=== PATIENT | female | born 1995 | race Caucasian/White ===

== ENCOUNTER 2020-05-28 16:55 | Emergency (ER) | payer OTHER ==
[2020-05-28 17:18] VITALS: TEMP 97.6; BMI 38.6
[2020-05-28] MEDS ORDERED: ACETAMINOPHEN 1000 MG/100 ML VIAL (NON FORMULARY) IVPB ONE (17:56)
[2020-05-28] MEDS ORDERED: SODIUM CHLORIDE 1,000 ML IV STA (17:56)
--- NOTE | 2020-05-28 18:03 | PDOC ---
History of Present Illness - General Chief Complaint: Pain Stated Complaint: ABD PAIN Time Seen by Provider: 05/28/20 17:48 History Source: Patient Exam Limitations: No Limitations - History of Present Illness Travel History: No Initial Comments: 05/28/20 17:59 HISTORY OF PRESENT ILLNESS: 25-year-old woman denies medical history presents emergency department for evaluation of atraumatic left upper quadrant pain starting upon awakening today. Patient reports her pain is 8/10 is unable to describe the quality of the pain other than "it hurts really bad." Patient is unable to identify any aggravating or alleviating factors. She denies any nausea, vomiting, fevers, chills, dysuria, hematuria, rectal bleeding, constipation or diarrhea. No recent travel or sick contacts. PAST MEDICAL HISTORY: Denies past medical history SURGICAL HISTORY: Denies ALLERGIES: No known drug allergies REVIEW OF SYSTEMS General/Constitutional: Denies fever or chills. Denies weakness, weight change. HEENT: Denies change in vision. Denies ear pain or discharge. Denies sore throat. Cardiovascular: Denies chest pain or shortness of breath. Respiratory: Denies cough, wheezing, or hemoptysis. Gastrointestinal: See HPI Genitourinary: Denies dysuria, frequency, or change in urination. Musculoskeletal: Denies joint or muscle swelling or pain. Denies neck or back pa in. Skin and breasts: Denies rash or easy bruising. Neurologic: Denies headache, vertigo, loss of consciousness, or loss of sensation. Psychiatric: Denies depression or anxiety. Endocrine: Denies increased thirst. Denies abnormal weight change. Hematologic/Lymphatic: Denies anemia, easy bleeding, or history of blood clots. Allergic/Immunologic: Denies hives or skin allergy. Denies latex allergy. PHYSICAL EXAM General Appearance: Well-appearing, appropriately dressed. No apparent distress, no intoxication. Respiratory/Chest: Lungs CTAB. No shortness of breath, chest tenderness, respiratory distress, accessory muscle use. No crackles, rales, rhonchi, stridor, wheezing, dullness Cardiovascular: RRR. S1, S2. No JVD, murmur, bradycardia, tachycardia. Gastrointestinal/Abdominal: Normal bowel sounds. Abdomen soft, non-distended. Left upper quadrant tenderness with guarding present. No organomegaly, pulsatile mass, hernia, hepatomegaly, splenomegaly. Musculoskeletal/Extremities: Normal inspection. FROM of all extremities, normal capillary refill. No CVA tenderness. Past History - Medical History Allergies/Adverse Reactions: Allergies Allergy/AdvReac Type Severity Reaction Status Date / Time No Known Allergies Allergy Verified 05/28/20 17:18 COPD: No - Reproductive History Is Patient Now?: No - Psycho-Social/Smoking History Smoking History: Former smoker Have you smoked in the past 12 months: Yes If you are a former smoker, when did you quit?: 4MONTHS AGO Information on smoking cessation initiated: No - Substance Abuse Hx (Audit-C & DAST Scrn) How often the patient has a drink containing alcohol: Never Score: In Men: 4 or > Positive; In Women: 3 or > Positive: 0 Screen Result (Pos requires Nsg. Audit-10AR): Negative In the last yr the pt used illegal drug/Rx for NonMed reason: No Score: Yes response is considered Positive: 0 Screen Result (Positive result requires Nsg. DAST-10): Negative *Physical Exam - Vital Signs Last Vital Signs Temp Pulse Resp BP Pulse Ox 97.6 F 95 H 18 134/88 98 05/28/20 17:13 05/28/20 17:13 05/28/20 17:13 05/28/20 17:13 05/28/20 17:13 ED Treatment Course - LABORATORY CBC & Chemistry Diagram: 05/28/20 18:00 05/28/20 18:00 - RADIOLOGY Radiology Studies Ordered: Category Date Time Status ABDOMEN & PELVIS CT WITH CONTR [CT] Stat CT Scan 05/28/20 17:58 Ordered Medical Decision Making - Medical Decision Making 05/28/20 18:02 A/P: 25-year-old woman with atraumatic left upper quadrant pain since awakening today Right upper quadrant tenderness with guarding present Differential diagnosis includes but is not limited to-gastritis, hiatal hernia, obstruction, perforation, infection, metastatic disease, pancreatitis, splenic artery occlusion, splenic infarct. Labs including lipase Normal saline 1 L IV bolus Tylenol [address] abdomen and pelvis with IV contrast Reassess 05/28/20 21:09 05/28/20 21:57 Laboratory Tests 05/28/20 05/28/20 05/28/20 18:00 18:00 19:30 WBC 7.1 RBC 4.64 Hgb 12.9 Hct 39.1 MCV 84.4 MCH 27.9 MCHC 33.0 RDW 15.3 Plt Count 407 MPV 7.9 Absolute Neuts (auto) 4.5 Neutrophils % 63.4 Lymphocytes % 26.2 Monocytes % 8.8 Eosinophils % 0.9 Basophils % 0.7 Nucleated RBC % 0 Sodium 139 Potassium 4.2 Chloride 107 Carbon Dioxide 24 Anion Gap 7 L BUN 10.1 Creatinine 0.8 Est GFR (CKD-EPI)AfAm 120.44 Est GFR (CKD-EPI)NonAf 103.92 Random Glucose 103 Calcium 9.0 Total Bilirubin 0.4 AST 22 ALT 40 Alkaline Phosphatase 68 Total Protein 7.3 Albumin 3.7 Lipase 130 Urine Color Yellow Urine Appearance Cloudy Urine pH 7.5 D Ur Specific [place] 1.025 Urine Protein Negative Urine Glucose (UA) Negative Urine Ketones Negative Urine Blood Negative Urine Nitrite Negative Urine Bilirubin Negative Urine Urobilinogen 1.0 Ur Leukocyte Esterase Negative Urine HCG, Qual Negative CT of the abdomen pelvis is read by Dr. Lenz: No definite CT findings of acute pathology are noted. A 4 x 3.9 cm right adnexal cyst is seen. Correlation with 6-week follow-up son ography is suggested to document resolution. Moderate to large central/right paramedian L5-S1 disc herniation is noted. His laboratory testing is unremarkable CT findings are unremarkable patient is tolerating p.o.'s, I feel it is safe to discharge home to follow-up with her primary doctor. A referral for gastroenterology has been provided. I discussed the physical exam findings, ancillary test results and final diagnoses with the patient. I answered all of the patient's questions. The patient was satisfied with the care received and felt comfortable with the discharge plan and treatment plan. The patient will call their primary care physician within 24 hours to arrange follow-up and will return to the Emergency Department with any new, persistent or worsening symptoms. Portions of this note have been documented using voice recognition software. As a result, errors may occur in the explosive ordnance manager process. Effort has been made to correct all grammatical and explosive ordnance manager error, but some may have been missed which may produce sporadic inaccurate explosive ordnance manager or nonsensical phrases. Discharge - Discharge Information Problems reviewed: Yes Clinical Impression/Diagnosis: Abdominal pain Qualifiers: Abdominal location: left upper quadrant Qualified Code(s): R10.12 - Left upper quadrant pain Condition: Fair Disposition: HOME - Admission No - Follow up/Referral Referrals: Melani Samson MD [Staff Physician] - - Patient Discharge Instructions Additional Instructions: Rest, drink lots of fluids: Teas, water, soups Tyra taurus, carbonated beverages for the bubbles May try peppermint teas Avoid heavy , spicy or fatty foods until symptoms have resolved Avoid contact with others until fevers and symptoms resolved Lots of handwashing and good hygiene Continue [id number] medications for symptomatic relief Tylenol for fever and pain Followup with private physician in one to 2 days as needed Return to emergency department for worsened symptoms, fevers, dehydration - Post Discharge Activity Work/Back to School Note: Back to Work
[2020-05-28] MEDS ORDERED: ACETAMINOPHEN INJECTION 100 ML IVPB ONE (18:19)
[2020-05-28 18:45] LABS: BASO % 0.7 % (0-2.0); EOS % 0.9 % (0-4.5); HEMATOCRIT 39.1 % (32.4-45.2); HEMOGLOBIN 12.9 GM/dL (10.7-15.3); LYMPH % 26.2 % (8-40); MCH 27.9 pg (25.7-33.7); MEAN CELL VOLUME 84.4 fl (80-96); MEAN PLT VOLUME 7.9 fl (7.5-11.1); MONO % 8.8 % (3.8-10.2); NEUT % 63.4 % (42.8-82.8); PLATELET COUNT 407 K/MM3 (134-434); RBC 4.64 M/mm3 (3.60-5.2); RDW 15.3 % (11.6-15.6); WHITE BLOOD COUNT 7.1 K/mm3 (4.0-10.0)
[2020-05-28 19:13] LABS: ALBUMIN 3.7 g/dl (3.4-5.0); BILIRUBIN,TOTAL 0.4 mg/dL (0.2-1); BLOOD UREA NITROGEN 10.1 mg/dL (7-18); CREATININE 0.8 mg/dL (0.55-1.3); POTASSIUM 4.2 mmol/L (3.5-5.1); TOT PROT 7.3 g/dl (6.4-8.2)
[2020-05-28 20:07] LABS: PH,URINE 7.5 (5.0-8.0); URINE APPEARANCE CLOUDY; URINE BILIRUBIN NEGATIVE (NEGATIVE); URINE COLOR YELLOW; URINE GLUCOSE (UA) NEGATIVE (NEGATIVE); URINE KETONE NEGATIVE (NEGATIVE); URINE LEUK ESTERASE NEGATIVE (NEGATIVE); URINE NITRITE NEGATIVE (NEGATIVE); URINE PROTEIN NEGATIVE (NEGATIVE)
[2020-05-28 20:27] LABS: HCG,QUALITATIVE URINE Negative
[2020-05-28 22:06] VITALS: BP 127/84; PULSE 89
--- OUTSIDE RECORDS SUMMARY | 2020-05-29 09:16 | XMS ---
:1995 Author Organization [facility] Support Name Relationship Address Phone UE Unavailable Unavailable Unavailable [employer] [place] [address] P, Michelle Unavailable [address] [facility] [place] [address] Re-disclosure Warning The records that you are about to access may contain information from federally- assisted alcohol or drug abuse programs. If such information is present, then the following federally mandated warning applies: This information has been disclosed to you from records protected by federal confidentiality rules (42 CFR part 2). The federal rules prohibit you from making any further disclosure of this information unless further disclosure is expressly permitted by the written consent of the person to whom it pertains or as otherwise permitted by 42 CFR part 2. A general authorization for the release of medical or other information is NOT sufficient for this purpose. The Federal rules restrict any use of the information to criminally investigate or prosecute any alcohol or drug abuse patient.The records that you are about to access may contain highly sensitive health information, the redisclosure of which is protected by Article 27-F of the [facility] Public Health law. If you continue you may haveaccess to information: Regarding HIV / AIDS; Provided by facilities licensed or operated by the [facility] Office of Mental Health; or Provided by the [facility] Office for People With Developmental Disabilities. If such information is present, then the following [facility] mandated warning applies: This information has been disclosed to you from confidential records which are protected by state law. State law prohibits you from making any further disclosure of this information without the specific written consent of the person to whom it pertains, or as otherwise permitted by law. Any unauthorized further disclosure in violation of state law may result in a fine or alf sentence or both. A general authorization for the release of medical or other information is NOT sufficient authorization for further disclosure. Allergies and Adverse Reactions Type Description Substance Reaction Status Data Source(s ) No Known No Known Allergies No Known eCW2 ( [facility] [facility]) Encounters Encounter Providers Location Date Indications Data Source(s ) [facility] [place] [facility] 12:[facility] - Ant EDT [facility] [facility]) Outpatient 12/07/2018 [facility] 07:54:00 AM ([facility] 05/09/2018 [facility] ( [facility] 12:00:00 AM Pa[facility] - Ant EDT [facility] [facility]) [facility] 05/02/2018 [facility] ( [facility] 12:00:00 AM Paren th[facility] - Ant EDT [facility]) [facility] 09/09/2017 eCW2 ( [facility] 12:00:00 AM Paren th[facility] - Ant EST [facility]) [facility] 02/02/2017 eCW2 ( [facility] [place] 12:00:00 AM Paren[facility] o[facility] - Ant EDT [facility]) [facility] 12/16/2016 eCW2 ( [facility] 12[facility]00:00 AM [facility] - Ant EDT [facility]) [facility] 12/30/2015 eCW[facility] ( [facility] 12:00:00 AM Paren th[facility] - Ant EDT [facility]) [facility] 06/30/2015 e[facility] ( [facility] 12:00:00 AM Paren th[facility] - Ant EDT [facility]) [facility] 03/19/2015 eCW[facility] ( [facility] 12:00:00 AM Paren th[facility] - Ant EDT [facility]) [facility] 09/19/2014 eCW2 ( [facility] 12:00:00 AM Paren th[facility] - Ant EST [facility]) [facility] 06/09/2014 eCW2 ( [facility] 12:00:00 AM Paren th[facility] - Ant EDT [facility]) [facility] 06/05/2014 eCW[facility] ( [facility] 12:00:00 AM Paren [facility] - Ant EDT [facility]) Immunizations Vaccine Date Status Description Data Source(s) No Known Immunizations completed eCW2 ([facility] [place] [facility]) Medications Medication Brand Start Product Dose Route Administrative Pharm[facility] Indications Reaction Description Data Name Date Form Instructions Instructions Source(s) 168 HR Xulane 05/02/ suspend 1 patch to eCW2 Ethinyl 150-35 2017 ed skin (Planned Estradiol MCG/24 12:00: Parent harris 0.34414 HR 00 AM - [facility] MG/HR / EDT [place] [employer] at min 0.34448 ed) MG/HR Transdermal Patch [Xulane] Xulane 150-35 MCG/24HR 168 HR Xulane 09/09/ suspend 1 patch to eCW2 Ethinyl 150-35 2016 ed skin ([facility] Estradiol MCG/24 12:00: Parent harris 0.35864 HR 00 AM - [facility] MG/HR / EST [place] [employer] at min 0.72750 ed) MG/HR Transdermal Patch [Xulane] Xulane 150-35 MCG/24HR Estradiol 1 Estrac 02/02/ suspend 1 tabl et eCW2 MG Oral e 1 MG 2016 ed (Planned Tablet 12:00: [facility] [Estrace] 00 AM - [facility] Estrace 1 EDT [place] MG [employer] ed) Fluconazole Difluc 12/29/ suspend 1 tabl et eCW2 150 MG Oral an 2015 ed (Planned Tablet 150MG 12:00: Parenthood [Diflucan] 00 AM - [facility] Diflucan EDT [place] 150MG [employer] ed) Etonogestre Nexpla suspend as direc sunita eCW2 l 68 MG non 68 ed ([facility]anned Drug [facility] [Nexplanon] [place] Nexplanon [employer] 68 MG ed) Naproxen UNK active eCW2 ([facility] [place] [facility] ed) Insurance Providers Payer name Policy type Policy ID Covered Covered green party's Policy P aaron / Coverage green party ID relationship to [place] Inf ormation type castano [facility] MEDICAID [id number] [facility] [id number] Problems, Conditions, and Diagnoses Code Display Name Description Problem Type Effective Dates Data Source(s) Z11.3 Venereal disease Routine screening Problem 07/07/2015 e CW2 ([facility]anned screening for STI (sexually 12:00:00 AM EDT [facility] - transmitted [facility] [place] [facility] infection) [facility]) Surgeries/Procedures Procedure Description Date Indications Data Source(s) CHLAMYDIA, SARAH 03/11/2020 eCW2 ([facility] 12:00:00 AM EDT [facility] [facility]) Telehealth Visit Code 03/11/2020 eCW2 ( [facility] 12:00:00 AM EDT [facility] [place] [facility] rated) GONORRHEA, SARAH 03/11/2020 eCW2 ([facility] 12:00:00 AM EDT [facility] [place] [facility] rated) SPECIMEN HANDLING 03/11/2020 eCW2 (Plan feroz 12:00:00 AM EDT [facility] [place] [facility] rated) HIV-1 AG W/HIV-1 & 03/11/2020 eCW2 ([place] nned HIV-2 AB 12:00:00 AM EDT [facility] [place] [facility] rated) SYPHILIS TEST 03/11/2020 eCW2 ([facility] 12:00:00 AM EDT [facility] [place] [facility] rated) HEP A ANTIBODY 03/11/2020 eCW2 ([facility] 12:00:00 AM EDT [facility] [place] [facility] rated) HEP B CORE ANTIBODY 03/11/2020 eCW2 (Pl anned TOTAL 12:00:00 AM EDT [facility] [place] [facility] rated) HEP B SURFACE AB 03/11/2020 eCW2 (Plann ed 12:00:00 AM EDT [facility] [place] [facility] rated) HEP B SURFACE ANTIGEN 03/11/2020 eCW2 ( Planned HBsAg 12:00:00 AM EDT [facility] [place] [facility] rated) HEP C ANTIBODY 03/11/2020 eCW2 ([facility] 12:00:00 AM EDT [facility] [place] [facility]) Social History Code Duration Value Status Description Data Source(s ) Smoking Unknown if ever completed Unknown if ever eCW2 ([facility] smoked smoked [facility]) Vital Signs ID Date Data Source UNK Name Value Range Interpretation Code Description Data Source(s) Body mass index 35.51 kg/m2 35.51 kg/m2 eCW2 (P lanned (BMI) [Ratio] [facility]) Body weight 220 [lb_av] 220 [lb_av] eCW2 (Plann ed Measured [facility]) Body height 66 [in_us] 66 [in_us] eCW2 ([facility])
== END 2020-05-28 22:06 | disposition home or self-care (01) ==
LOC: JERFT 16:55
PROC: 3E0333Z Introduction of Anti-inflammatory into Peripheral Vein, Percutaneous Approach (ICD-10-PCS; principal; 2020-05-28)
PROC: 3E0337Z Introduction of Electrolytic and Water Balance Substance into Peripheral Vein, Percutaneous Approach (ICD-10-PCS; 2020-05-28)
DX: R10.12 Left upper quadrant pain (principal)
CPT/HCPCS: 36415; 74177-TC; 80053; 81003; 83690; 84703; 85025; 99285-25; J0131

== ENCOUNTER 2021-09-22 14:10 | Emergency (ER) | payer OTHER ==
[2021-09-22 15:35] VITALS: BP 119/76; PULSE 132; TEMP 99.1; BMI 38.2
[2021-09-22] MEDS ORDERED: ACETAMINOPHEN 500 MG TABLET (FP) PO ONE (17:15)
[2021-09-22] MEDS ORDERED: KETOROLAC TROMETHAMINE 30 MG/1 ML VIAL IM ONE (17:15)
== END 2021-09-22 18:34 | disposition home or self-care (01) ==
LOC: JER 14:10
PROC: 3E0233Z Introduction of Anti-inflammatory into Muscle, Percutaneous Approach (ICD-10-PCS; principal; 2021-09-22)
DX: U07.1 COVID-19 (principal)
CPT/HCPCS: 71046-TC-FY; 99284-25